=== PATIENT | female | born 1990 | race Caucasian/White ===

== ENCOUNTER 2020-03-30 00:07 | Inpatient (IN) | payer OTHER ==
[~2020-03-30] VITALS: Ht 172.7 cm; Wt 78.2 kg
[2020-03-30] VITALS (35 sets, daily range): BP systolic 99–152; BP diastolic 54–88; PULSE 69–123; TEMP 98.2–98.5
[2020-03-30] MEDS ORDERED: PRENATAL TABLET PO (00:24)
[2020-03-30 01:04] LABS: BASO % 0.2 % (0.0-2.0); EOS # 0.1 (0.0-0.7); EOS % 0.9 % (0-4.0); GRAN # 5.6 (1.4-6.5); GRAN % 69.5 % (42.2-75.2); HEMATOCRIT 39.6 % (37.0-47.0); HEMOGLOBIN 13.2 g/dl (12.5-16.0); LYMPH # 1.7 (1.2-3.4); LYMPH % 20.6 % (20.0-51.0); MEAN CELL VOLUME 86 fl (80.0-100.0); MEAN CORPUSCULAR HEMOGLOBIN 29 pg (27.0-31.0); MEAN CORPUSCULAR HGB CONC 33 g/dl (33.0-37.0); MEAN PLATELET VOLUME 11.7 fl (7.4-10.4); MONO # 0.7 (0.1-0.6); MONO % 8.4 % (1.7-9.3); PLATELET COUNT 156 K/mm3 (130-400); RED BLOOD COUNT 4.62 M/mm3 (4.10-5.30); REDCELL DISTRIBUTION WIDTH-CV 13.2 % (11.5-14.5)
[2020-03-30] MEDS ORDERED: MOTRIN 800800 MG/TAB PO (22:10)
[2020-03-31 02:00] VITALS: BP 116/64; PULSE 87; TEMP 97.8
[2020-03-31 05:30] VITALS: BP 116/81; PULSE 79; TEMP 97.2
[2020-03-31 07:15] VITALS: BP 130/79; PULSE 87; TEMP 98.3
[2020-03-31 07:51] LABS: HEMOGLOBIN 11.9 g/dl (12.5-16.0)
[2020-03-31 07:55] LABS: HEMATOCRIT 36.7 % (37.0-47.0)
== END 2020-03-31 14:45 | disposition home or self-care (01) | DRG 807 ==
LOC: LDRO 00:07 → LDR 00:23 → OB 11:56
PROVIDERS: Student in an Organized Health Care Education/Training Program; ADMIT Obstetrics & Gynecology
PROC: 10E0XZZ Delivery of Products of Conception, External Approach (ICD-10-PCS; principal; 2020-03-30)
PROC: 0KQM0ZZ Repair Perineum Muscle, Open Approach (ICD-10-PCS; 2020-03-30)
DX: O70.1 Second degree perineal laceration during delivery (principal); Z37.0 Single live birth; O69.1XX0 Labor and delivery complicated by cord around neck, with compression, not applicable or unspecified; O77.0 Labor and delivery complicated by meconium in amniotic fluid; Z3A.39 39 weeks gestation of pregnancy
CPT/HCPCS: J2590; J2795; J7120

== ENCOUNTER → 2020-04-04 | Outpatient (CLI) | payer OTHER ==
[~2020-04-04] MED LIST: MOTRIN 800800 MG/TAB PO; PRENATAL TABLET PO
--- NOTE | 2020-04-04 14:54 | NUR ---
Pt, Antionette Naylor, presents for outpatient consult with 5 day old baby girl, Monica Naylor, for assistance. Monica has been fed with a nipple shield but pt concerned she is not getting much and wants to try nursing without nipple shield. Monica was born on [birth year] and weighed 6#10.1oz (3015 gms). Pt reports baby was seen by Dr. Pham yesterday and her weight was down to 5#15oz (10%). Since then pt has pumped and bottle fed Monica. She has recieved 8 feeds of 1-1.5oz of EBM or formula. Today Monica weighs 6#3.6oz (2824 gms). Pt states her milk is increasing since yesterday and feels Monica is starting to improve, but she is still sleepy and needs encouragement to drink from the bottle. Pt reports infant's voids and stools have increase to WNL in the last 24 hours, that the stools are getting yellow and seedy. is attempted with LC help both with and without the nipple shield. Monica cannot pull the nipple out well enough to latch and with the sheild she does not seem very interested in suckling at all. Eventually she is moved to bottle feeding, by this LC, while pt pumps. Monica does not take much interest in bottle feeding and after about 20 minutes and a lot of cajoling she has drank 42ml. She had a 2 ml gain from . Pt pumps, collecting about 1.75 oz. POC: Three step feeding plan to include offering breast as desired. If baby is not interested or receptive pt does not have to force the issue. Follow with bottle feeding 40-60ml per feeding, and pumping bilaterally. Repeat 8x/day. F/U: Anticipate one week, but pending pt's feeling of improvement of baby's interest at the breast. One month as scheduled with Dr. Pham. Questions invited and answered, pt verbalizes understanding.
== END ==
LOC: LAC 13:03
DX: Z39.1 Encounter for care and examination of lactating mother (principal); Z71.89 Other specified counseling

== ENCOUNTER → 2020-04-11 | Outpatient (CLI) | payer OTHER ==
--- NOTE | 2020-04-11 16:11 | NUR ---
Pt, Antionette Naylor, presents for follow up consult with 12 day old baby girl, Monica Naylor for latching assistance. They were seen one week ago for latching as well. Monica was born on [birth year] and weighed 6#10.1oz (3015 gms). Last week she weighed 6#3.6oz (2824 gms). Today she weighes 6#11.7oz (3054 gms). Antionette continues to offer the breast to Monica a few times each day, practices [id number], but still has not had her latch yet. She also continues to pump and bottle feed. Lalo drinks 1.5-2 oz every 2-3 hours and Antionette is able to pump 2-3oz every 2-3 hours. The nipples piedad better but can still retract just a bit with breast compression. LC and pt work to latch Monica to the breast, all appears good with nipple presentation and mouth opening but she does not latch and engage in a suckling effort. SNS with EBM used to entice as well as intermittent use of a nipple shield. Monica would work with reward from the SNS but without it she would not stay on task. Overall her effort and mouth opening have improved a good bit from a week ago. POC: continue offering breast, pumping and bottle feeding. F/U: one week with this LC. Questions invited and answered.
== END ==
LOC: LAC 13:30
DX: Z39.1 Encounter for care and examination of lactating mother (principal); Z71.89 Other specified counseling

== ENCOUNTER 2021-07-08 13:51 | Emergency (ER) | payer OTHER ==
[~2021-07-08] VITALS: Ht 170.2 cm; Wt 77.3 kg
[2021-07-08 14:00] VITALS: TEMP 98.4
[2021-07-08 14:27] LABS: BASO % 0.3 % (0.0-2.0); EOS # 0.1 (0.0-0.7); EOS % 1.6 % (0-4.0); GRAN # 6.4 (1.4-6.5); GRAN % 73.6 % (42.2-75.2); HEMATOCRIT 38.2 % (37.0-47.0); HEMOGLOBIN 12.9 g/dl (12.5-16.0); LYMPH # 1.5 (1.2-3.4); LYMPH % 16.8 % (20.0-51.0); MEAN CELL VOLUME 87 fl (80.0-100.0); MEAN CORPUSCULAR HEMOGLOBIN 29 pg (27.0-31.0); MEAN CORPUSCULAR HGB CONC 34 g/dl (33.0-37.0); MEAN PLATELET VOLUME 10.5 fl (7.4-10.4); MONO # 0.6 (0.1-0.6); MONO % 7.1 % (1.7-9.3); PLATELET COUNT 193 K/mm3 (130-400); RED BLOOD COUNT 4.39 M/mm3 (4.10-5.30); REDCELL DISTRIBUTION WIDTH-CV 12.8 % (11.5-14.5)
[2021-07-08 14:37] LABS: ALBUMIN 3.7 gm/dL (3.5-5.0); BILIRUBIN,TOTAL 0.1 mg/dL (0.0-1.0); CALCIUM 9.1 mg/dL (8.4-10.2); CREATININE, serum 0.52 (0.52-1.25); POTASSIUM 3.6 mmol/L (3.4-5.0); TOTAL PROTEIN 6.9 gm/dL (6.4-8.2)
--- NOTE | 2021-07-08 15:12 | NUR ---
maternal heart rate 82 baseline 135, acels, no decles
[2021-07-08 15:21] VITALS: BP 128/80; PULSE 78
== END 2021-07-08 15:22 | disposition home or self-care (01) ==
LOC: COL.ER 13:51
PROVIDERS: Emergency Medicine
DX: O99.712 Diseases of the skin and subcutaneous tissue complicating pregnancy, second trimester (principal); R21 Rash and other nonspecific skin eruption; Z3A.18 18 weeks gestation of pregnancy

== ENCOUNTER 2021-09-23 22:03 | Inpatient (IN) | payer OTHER ==
[~2021-09-23] VITALS: Ht 20.3 cm; Wt 82.7 kg
--- NOTE | 2021-09-23 00:28 | NUR ---
FHT's with deceleration tp 70's with contraction, returns to baseline. Pt states "she was really moving and now I Really have to go to the bathroom."
--- NOTE | 2021-09-23 00:46 | NUR ---
FHT's with deceleration to 70's with contraction, returns to baseline 130's by end of contraction. To WR.
[2021-09-23 22:25] VITALS: BP 128/77; PULSE 89; TEMP 98.6
[2021-09-23 23:00] VITALS: PULSE 92
[2021-09-23 23:15] VITALS: PULSE 111
[2021-09-24] VITALS (35 sets, daily range): BP systolic 100–140; BP diastolic 43–90; PULSE 60–104; TEMP 97.8–98.8
--- NOTE | 2021-09-24 00:28 | NUR ---
FHT's with deceleration to 70's with ctx and ?FM, while returning to [facility] loss of tracing with external monitor. 0032 Unable to obtain/maintain FHR tracing, palpated movement. 0035 audible FHR 120's unable to obtain tracing, active fetus. Pt states "she's moving so much now I really have to go to the bathroom" up to bathroom. 0045 FSE placed.
[2021-09-24 00:30] LABS: BASO % 0.2 % (0.0-2.0); EOS # 0.1 K/mm3 (0.0-0.7); EOS % 1.2 % (0-4.0); GRAN # 5.3 K/mm3 (1.4-6.5); GRAN % 64.6 % (42.2-75.2); LYMPH # 1.8 K/mm3 (1.2-3.4); LYMPH % 21.9 % (20.0-51.0); MEAN CELL VOLUME 85 fl (80.0-100.0); MEAN CORPUSCULAR HEMOGLOBIN 28 pg (27.0-31.0); MEAN CORPUSCULAR HGB CONC 34 g/dl (33.0-37.0); MEAN PLATELET VOLUME 11.6 fl (7.4-10.4); MONO % 11.6 % (1.7-9.3); PLATELET COUNT 170 K/mm3 (130-400); RED BLOOD COUNT 4.22 M/mm3 (4.10-5.30); REDCELL DISTRIBUTION WIDTH-CV 13.1 % (11.5-14.5)
[2021-09-24 00:33] LABS: HEMATOCRIT 35.7 % (37.0-47.0)
--- NOTE | 2021-09-24 04:15 | NUR ---
Pt states 'the contractions are getting stronger. I think I'll be ready for an epidural after I have a snack."
--- NOTE | 2021-09-24 05:03 | NUR ---
Pt moved to sit on edge of bed. Shelbie ALVARADO into room for epidural placement, see anesthesia record.
--- NOTE | 2021-09-24 06:00 | NUR ---
FHT's with recurrent decelerations to 110, returning to baseline each time by end of CTX. Diaz catheter placed.
--- NOTE | 2021-09-24 07:20 | NUR ---
AT BEDSIDE TO ASSESS PT AND STRIP. LATE DECELS WITH CONTRACTIONS, UNABLE TO CORRECT WITH POSITION CHANGES. PITOCIN OFF AT THIS TIME DUE TO PREVIOUS TORB (SEE PHYS.NOTIFICATION). SVE -/-2. VORB TO KEEP PITOCIN OFF AT THIS TIME.
--- NOTE | 2021-09-24 07:48 | NUR ---
CALL FROM AT THIS TIME, TORB TO RESTART PITOCIN @ 2MU/HR AND TITRATE PER PROTOCOL.
--- NOTE | 2021-09-24 08:40 | NUR ---
0840: AT BEDSIDE FOLLOWING A LATE DECELERATION TO ASSESS PT. SVE COMPLETE AT THIS TIME. ROOM PREPARED AND NURSERY NOTIFIED FOR DELIVERY. 0843: PT BEGINS PUSHING X1 AND HEAD BEGINS TO DELIVER. 0844: PER OF VIABLE FEMALE INFANT AT THIS TIME. PLACED ON MATERNAL ABDOMEN, CORD CLAMPED X2 AND CUT BY FOB. CARE OF ASSUMED BY ERIN HADDAD. 0846: OF PLACENTA. PITOCIN INFUSING PER PROTOCOL. BEGINS REPAIR OF A 1ST DEGREE LACERATION. LOCHIA SMALL WITH NO CLOTS NOTED AT THIS TIME. FUNDUS FIRM AT UMBILICUS. WILL CONTINUE PP FUNDAL MASSAGE AND CARES PER PROTOCOL. 1100: PT REPORTS FULL SENSATION TO BLE. LOCHIA WNL. FUNDUS FIRM AND 1FB BELOW UMBILICUS. PT ABLE TO BEAR FULL WEIGHT AND DENIES DIZZINESS. AMBULATORY TO RESTROOM FOR PP CARES. EMI CARE PROVIDED. PT PLACED IN NEW GOWN, UNDERWEAR AND PAD. ICE PACK APPLIED TO PERINEUM. PT ASSISTED TO NURSERY TO WATCH INFANTS FIRST BATH IN STABLE CONDITION.
[2021-09-25 06:46] VITALS: BP 112/77; PULSE 74; TEMP 97.6
[2021-09-25 07:03] LABS: HEMATOCRIT 35.5 % (37.0-47.0); HEMOGLOBIN 11.8 g/dl (12.5-16.0)
== END 2021-09-25 15:55 | disposition home or self-care (01) | DRG 807 ==
LOC: LDRO 22:03 → LDR 23:10 → OB 09-24 19:00
PROVIDERS: Obstetrics & Gynecology; ADMIT Obstetrics & Gynecology
PROC: 10E0XZZ Delivery of Products of Conception, External Approach (ICD-10-PCS; principal; 2021-09-24)
PROC: 0UQGXZZ Repair Vagina, External Approach (ICD-10-PCS; 2021-09-24)
DX: O99.62 Diseases of the digestive system complicating childbirth (principal); Z37.0 Single live birth; O71.4 Obstetric high vaginal laceration alone; K21.9 Gastro-esophageal reflux disease without esophagitis; Z3A.40 40 weeks gestation of pregnancy
CPT/HCPCS: J2590; J7120